=== PATIENT | female | born 1990 | race Caucasian/White ===

== ENCOUNTER 2020-12-23 03:35 | Emergency (ER) | payer OTHER ==
[~2020-12-23] VITALS: Ht 167.6 cm; Wt 93.9 kg
[2020-12-23 03:49] VITALS: Ht 167.6 cm; Wt 93.9 kg
[2020-12-23 05:41] VITALS: BP 133/95
== END 2020-12-23 05:41 | disposition home or self-care (01) ==
LOC: ED 03:35
DX: K04.7 Periapical abscess without sinus (principal); H92.02 Otalgia, left ear
CPT/HCPCS: J1885